=== PATIENT | female | born 1970 | race Caucasian/White ===

== ENCOUNTER 2018-08-07 12:10 | Emergency (ER) | payer OTHER ==
[~2018-08-07] VITALS: Ht 162.6 cm; Wt 77.3 kg
[~2018-08-07 12:10] MED LIST: PREN-39 PO
[2018-08-07 12:17] VITALS: Ht 162.6 cm; Wt 77.3 kg
[2018-08-07] MEDS ORDERED: KETOROLAC 15 MG INJ IV STA (12:27)
[2018-08-07] MEDS ORDERED: ONDANSETRON 4 MG INJ IV STA (12:27)
[2018-08-07] MEDS ORDERED: SOD CHLORIDE 0.9% 1,000 ML IV STA (12:27)
[2018-08-07] MEDS ORDERED: LORAZEPAM 0.5 MG TAB PO ONE (12:30)
--- NOTE | 2018-08-07 12:31 | ERD ---
ER Documentation Chief Complaint Chief Complaint DIZZINESS, BILEAERAL HAND "TINGLING", NAUSEA HPI 47-year-old woman complains of dizziness, posterior headache, nausea, multiple episodes of vomiting beginning this morning. She states she feels more dizzy when she opens her eyes. Patient denies abdominal pain or cramping, no diarrh ea, no chest pain or shortness of breath, no loss of consciousness. Patient denies recent travel or antibiotic use and denies prior episodes. ROS All systems reviewed and are negative except as per history of present illness. Medications Home Meds Active Scripts Meclizine Hcl* (Antivert*) 12.5 Mg Tab, 25 MG PO TID PRN for DIZZINESS, #30 TAB Prov:MELISSA BARILLAS MD 08/07/18 Ondansetron Hcl* (Zofran*) 4 Mg Tablet, 4 MG PO Q8H PRN for NAUSEA AND/OR VOMITING, #30 TAB Prov:MELISSA BARILLAS MD 08/07/18 Discontinued Reported Medications Vits W-Ca,Fe,Fa(<1MG) ( Vitamins) 1 Tab Tablet, 1 TAB PO DAILY for 7 Days 06/19/13 Allergies Allergies: Coded Allergies: No Known Allergies (Verified Allergy, Unknown, 08/07/18) PMhx/Soc History of Surgery: Yes (KNEE) Anesthesia Reaction: No Hx Neurological Disorder: No Hx Respiratory Disorders: No Hx Cardiac Disorders: No Hx Psychiatric Problems: No Hx Miscellaneous Medical Probl: Yes (LYME DISEASE) Hx Alcohol Use: No Hx Substance Use: No Hx Tobacco Use: No Smoking Status: Never smoker Physical Exam Vitals Vital Signs Date Temp Pulse Resp B/P (MAP) Pulse Ox O2 O2 Flow FiO2 Time Delivery Rate 08/07/18 98.4 67 15 146/99 100 Room Air 15:38 (115) 08/07/18 97.5 78 15 141/93 98 12:17 (109) Physical Exam GENERAL: Well-developed, well-nourished, appears dehydrated, nauseous, dizzy, afebrile HEENT: Dry mucous membranes, pink conjunctiva, no cervical spine tenderness or step-off deformities, no goiter, no jaundice or icterus, extraocular movements intact without pain. No submandibular induration, and no pharyngeal erythema NEURO: Alert and oriented 3, cranial nerves II through XII intact bilaterally, no nystagmus, pupils equal round reactive to light, no focal deficits or facial asymmetry, sensation intact distally Strength 5/5 in upper and lower extremities bilaterally CARDIAC: Regular rate and rhythm, no murmurs rubs or gallops LUNGS: Clear bilaterally no wheezing crackles or stridor ABDOMEN: Soft nontender, no guarding, no rigidity, no rebound, no psoas sign no obturator sign. Normoactive bowel sounds SKIN: Warm and dry to touch, no abrasions, contusions, or hematomas, no lacerations, no ecchymosis, no target lesions, and without ulcers EXTREMITIES: No clubbing cyanosis or edema, calves are bilaterally symmetrical, no Homans sign, no popliteal cord sign. Distal pulses equal and bilateral PSYCH: Normal affect without agitation or irritability Result Diagram: 08/07/18 1236 08/07/18 1236 Results 24 hrs Laboratory Tests Test 08/07/18 11:09 08/07/18 12:36 08/07/18 12:40 08/07/18 14:26 Serum HCG, NEGATIVE Qualitative White Blood Count 4.8 10^3/ul Red Blood Count 5.45 10^6/ul Hemoglobin 14.9 g/dl Hematocrit 45.1 % Mean Corpuscular 82.8 fl Volume Mean Corpuscular 27.3 pg Hemoglobin Mean Corpuscular 33.0 g/dl Hemoglobin Concen t Red Cell 13.4 % Distribution Width Platelet Count 316 10^3/UL Mean Platelet 8.7 fl Volume Immature 0.400 % Granulocytes % Neutrophils % 55.6 % Lymphocytes % 35.4 % Monocytes % 6.5 % Eosinophils % 1.3 % Basophils % 0.8 % Nucleated Red 0.0 /100WBC Blood Cells % Immature 0.020 10^3/ul Granulocytes # Neutrophils # 2.7 10^3/ul Lymphocytes # 1.7 10^3/ul Monocytes # 0.3 10^3/ul Eosinophils # 0.1 10^3/ul Basophils # 0.0 10^3/ul Nucleated Red 0.0 10^3/ul Blood Cells # Sodium Level 141 mmol/L Potassium Level 3.6 mmol/L Chloride Level 106 mmol/L Carbon Dioxide 24 mmol/L Level Anion Gap 11 Blood Urea 12 mg/dl Nitrogen Creatinine 0.62 mg/dl Est Glomerular > 60 mL/min Filtrat Rate mL/min Glucose Level 141 mg/dl Calcium Level 9.4 mg/dl Total Bilirubin 1.3 mg/dl Direct Bilirubin 0.00 mg/dl Indirect 1.3 mg/dl Bilirubin Aspartate Amino 22 IU/L Transf (AST/SGOT) Alanine 36 IU/L Aminotransferase (ALT/SGPT) Alkaline 86 IU/L Phosphatase Total Protein 7.1 g/dl Albumin 4.0 g/dl Globulin 3.10 g/dl Albumin/Globulin 1.29 Ratio Lipase 57 U/L Bedside Glucose 146 mg/dL Urine Color YELLOW Urine Clarity SLIGHTLY CLOUDY Urine pH 8.0 Urine Specific 1.014 Gilbert Urine Ketones TRACE mg/dL Urine Nitrite NEGATIVE mg/dL Urine Bilirubin NEGATIVE mg/dL Urine NEGATIVE mg/dL Urobilinogen Urine Leukocyte NEGATIVE Cresencio/ul Esterase Urine Microscopic 1 /HPF RBC Urine Microscopic 1 /HPF WBC Urine Hemoglobin NEGATIVE mg/dL Urine Glucose NEGATIVE mg/dL Urine Total NEGATIVE mg/dl Protein Current Medications Medications Dose Sig/Maye Start Time Status Last (Trade) Ordered Route PRN Stop Time Admin Dose Reason Admin Lorazepam 0.5 mg ONCE ONCE 08/07/18 DC 08/07/18 (Ativan) PO 12:30 12:51 08/07/18 12:31 Sodium 1,000 ml @ Q1H STAT 08/07/18 DC 08/07/18 Chloride 1,000 mls/hr IV 12:27 12:52 08/07/18 13:26 Ondansetron 4 mg ONCE STAT 08/07/18 DC 08/07/18 HCl (Zofran IV 12:27 12:51 Inj) 08/07/18 12:28 Ketorolac 15 mg ONCE STAT 08/07/18 DC 08/07/18 Tromethamine IV 12:27 12:52 (Toradol) 08/07/18 12:28 25 mg ONCE ONCE 08/07/18 DC 08/07/18 Hydrochloroth PO 16:00 16:05 iazide 08/07/18 16:01 (Hydrochlorot hiazide) Meclizine 25 mg ONCE ONCE 08/07/18 DC 08/07/18 HCl PO 16:00 16:05 (Antivert) 08/07/18 16:01 Procedures/[facility] IV line was established patient was placed on manager cardiac rhythm strip revealed a sinus rhythm at about 80 bpm with upright P and T waves. Patient was afebrile I administered 1 L normal saline IV, Toradol 15 mg IV x1, Zofran 4 mg IV, lorazepam 0.[address] scan of the brain was negative for acute bleed mass or shift. For later hypertension I administered hydrochlorothiazide 25 mg p.o. and for continued dizziness I administered meclizine 25 mg p.o. CBC and electrolytes were normal, liver function tests normal, urine analysis negative for infection Observation Note: Time: 4-1/2 hours Family Hx: No Hypertension Evaluation: Multiple exams showed improving symptoms and no evidence of worsening mental status or acute neurologic findings. Her strength was equal and bilateral in upper lower extremities, she had no focal deficits, no nystagmus and pupils were equal round reactive to light. Her headache improved and she had no vomiting episodes in the emergency department. Differential diagnoses considered, included but not limited to acute coronary syndrome, pulmonary embolism, aortic dissection, abdominal aortic aneurysm, sepsis, stroke, meningitis, encephalitis, pneumonia, appendicitis, cholecystitis, bowel obstruction, pyelonephritis, nephrolithiasis, cystitis, as well as metabolic, hematologic, and electrolyte abnormalities. As well as abscess, cellulitis, fractures, and dislocations. Patient feels much better at this time, and vital signs are normal, symptoms have improved. I did give strict instructions to return to the ED if symptoms co ntinue or worsen, patient will otherwise follow-up with primary care physician. Patient understood instructions and agreed to plan. Disclaimer: Inadvertent spelling and grammatical errors are likely due to EHR/dictation software use and do not reflect on the overall quality of patient care. Also, please note that the electronic time recorded on this note does not necessarily reflect the actual time of the patient encounter. Departure Diagnosis: Primary Impression: Dizziness Additional Impressions: BPPV (benign paroxysmal positional vertigo) Laterality: bilateral Qualified Codes: H81.13 - Benign paroxysmal vertigo, bilateral Hypertension Hypertension type: essential hypertension Qualified Codes: I10 - Essential (primary) hypertension Condition: Good MELISSA BARILLAS MD August 07, 2018 12:31
[2018-08-07] MEDS ORDERED: MECL12.574 PO (15:39)
[2018-08-07] MEDS ORDERED: ONDA4TAB8 PO (15:39)
[2018-08-07] MEDS ORDERED: HYDROCHLOROTHIAZIDE 25 MG TAB PO ONE (16:00)
[2018-08-07] MEDS ORDERED: MECLIZINE 12.5 MG TAB PO ONE (16:00)
[2018-08-07 19:20] VITALS: BP 130/81; PULSE 80; RESP 18
== END 2018-08-07 20:47 | disposition home or self-care (01) ==
LOC: E/R 12:10
DX: H81.13 Benign paroxysmal vertigo, bilateral (principal); I10 Essential (primary) hypertension; R11.2 Nausea with vomiting, unspecified
CPT/HCPCS: 36415; 70450; 80053; 81001; 82962; 83690; 84703; 85025; 96374; 96375; J1885; J2405; J7030; Z7502; Z7610; 81003